=== PATIENT | female | born 1980 | race Caucasian/White ===

== ENCOUNTER → 2016-10-12 | Outpatient (CLI) | payer OTHER ==
[~2016-10-12] MED LIST: DOCU-94 PO; IBUP-1050 PO; IUD'IUD IU; PRENTAB26 PO; PRT/20 PO
--- NOTE | 2016-10-12 14:29 | MAMMOGRAPHY REPORT ---
BILATERAL DIGITAL DIAGNOSTIC MAMMOGRAM TOMOSYNTHESIS WITH CAD AND TARGETED RIGHT ULTRASOUND: 7 CLINICAL HISTORY: 36-year-old woman presents after noticing an indentation below the right areola irena roximately 2 weeks ago. 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 Family history of breast cancer = mother at age 43. TECHNIQUE: Bilateral breast tomosynthesis in addition to standard 2D mammography was performed. Curre nt study was also evaluated with a Computer Aided Detection (CAD) system. COMPARISON: Comparison is made to exams dated: 05/29/2014 ultrasound, 07/11/2012 consultation, 07/11/2012 ultrasound, 03/17/2012 ultrasound, 03/17/2012 mammogram - [facility], and 9. BREAST COMPOSITION: The tissue of both breasts is extremely dense, which lowers the sensitivity of m ammography. FINDINGS: A square shaped skin marker overlies the area of indentation in the 6:00 anterior right diane ast. In the medial anterior right breast on the CC view, there is an oval circumscribed mass that me asures 10.0 x 5.7 mm. This is not definitely seen on the MLO view or corresponding tomosynthesis luis armando ges. No associated architectural distortion or microcalcification. No other suspicious mass, focal area of architectural distortion or suspicious microcavitation indications are seen in the right [address]. There is a stable metallic biopsy marker in the upper outer posterior left breast. No suspiciou s mass, architectural distortion or cluster of microcalcifications is seen in the left breast. Targeted ultrasound was performed in the right breast in the area of indentation as well as in the me dial breast to evaluate for the mammographic mass. In the 6:00 periareolar right breast in the area of concern, there is no evidence of a suspicious solid or cystic mass. In the superficial 3:00 right breast periareolar region, there is an oval parallel circumscribed, prominently anechoic cystic appe aring mass within internal nonvascular septations measuring 9.3 x 2.6 x 7.0 mm. Another predominantl y anechoic cyst is identified in the 2:00 right breast, 1 cm from the nipple measuring 6.7 x 2.8 x 8. 1 mm. It is unclear which of these cysts correlates with the mammographic mass but both are benign i n appearance. IMPRESSION: ACR BI-RADS CATEGORY 2: BENIGN, TARGETED ULTRASOUND ACR BI-RADS CATEGORY 2: BENIGN 1. There is no suspicious mammographic or targeted sonographic abnormality in the 6:00 right breast in the area of skin indentation pointed out by the patient. Therefore, clinical follow-up is recomme nded, as biopsy of a clinically suspicious mass should not be precluded by negative imaging. 2. A circumscribed oval 10 x 6 mm mammographic mass in the medial right breast is thought to correla te with one of 2 benign cysts seen in the 2:00 and 3:00 axis of the right breast on targeted ultrasou nd. These findings are most compatible with benign fibrocystic changes. 3. Given the strong family history of premenopausal breast cancer, recommend routine mammography in one year. Also consider adding breast MRI for additional screening, given the strong family history and dense breasts. These results and recommendations were discussed with the patient at the time of the exam. Approximately 10% of breast cancers are not detected with mammography. A negative mammographic report should not delay biopsy if a clinically suggestive mass is present. Ml Barber M.D. ay/:10/12/2016 11:54:50 Neuro Psych Sales Specialist: Jennifer SANDOVAL)(Zach), [facility] letter sent: Normal 1/2 BI-RADS Code: ACR BI-RADS Category 2: Benign Ultrasound BI-RADS: ACR BI-RADS Category 2: Benign
== END | disposition home or self-care (01) ==
LOC: C.MAMM 09:32
PROVIDERS: ATTEND Obstetrics & Gynecology
DX: N64.53 Retraction of nipple (principal); N63 Unspecified lump in breast

== ENCOUNTER → 2017-03-30 | Outpatient (CLI) | payer BC, OTHER | END | disposition home or self-care (01) | LOC: C.PAPS 11:27 | PROVIDERS: ATTEND Obstetrics & Gynecology | DX: Z12.4 Encounter for screening for malignant neoplasm of cervix (principal); R87.610 Atypical squamous cells of undetermined significance on cytologic smear of cervix (ASC-US) ==